=== PATIENT | female | born 1930 | race African-American/Black ===

== ENCOUNTER 2019-05-02 10:34 | Emergency (ER) | payer OTHER ==
[~2019-05-02] VITALS: Ht 154.9 cm; Wt 74.4 kg
[~2019-05-02 10:34] MED LIST: ACETAMINOPHEN325 M1 PO; ADULT LOW DOSE81 MG PO; AMARYL1 MG PO; AMARYL4 MG PO; ASPIRIN81 M2 PO; AZITHROMYCIN 2250 MG PO; CARVEDILOL6.25 MG PO; COZAAR 50 MG TA50 M1 PO; DIPHENHYDRAMINE25 M3 PO; EYE DROPS15 M1; GLUCOPHAGE1000 MG PO; GLUCOPHAGE500 MG PO; JANUVIA50 MG PO; LANTUS SUBQ; LEVAQUIN 500 M500 M2 PO; LOSARTAN POTASS50 MG PO; MEDROLDOSEPACK; MOBIC7.5 MG PO; NIACIN500 MG PO; NORCO 5-325 TA1 EACH PO; NOVOLOG100 UNIT/1 SQ; OMEPRAZOLE 20 M20 MG PO; PREDNISONE 5 MG5 M1 PO; SIMVASTATIN20 MG PO; TRAMADOL 50 MG50 MG PO; ULTRACET TABLE1 EACH PO; ZOCOR 20 MG TAB20 M1 PO; ZOFRAN ODT4 MG PO
[2019-05-02] MEDS ORDERED: TOUJEO SOL300 UNIT/1 SUBQ (10:54)
[2019-05-02] MEDS ORDERED: LATANOPROST 0.7.5 ML OP (11:01)
[2019-05-02] MEDS ORDERED: NORCO 5-325 TA1 EAC1 PO (12:11)
[2019-05-02 12:17] VITALS: BP 142/75
== END 2019-05-02 12:15 | disposition home or self-care (01) ==
LOC: ER 10:34
DX: M11.20 Other chondrocalcinosis, unspecified site (principal); M79.632 Pain in left forearm; M79.642 Pain in left hand; M79.89 Other specified soft tissue disorders; I10 Essential (primary) hypertension; E11.9 Type 2 diabetes mellitus without complications; Z90.710 Acquired absence of both cervix and uterus; Z91.81 History of falling; Z88.0 Allergy status to penicillin; Z88.1 Allergy status to other antibiotic agents; Z88.2 Allergy status to sulfonamides; Z88.6 Allergy status to analgesic agent; Z88.8 Allergy status to other drugs, medicaments and biological substances; W01.0XXA Fall on same level from slipping, tripping and stumbling without subsequent striking against object, initial encounter; Y93.89 Activity, other specified; Y92.89 Other specified places as the place of occurrence of the external cause; Y99.8 Other external cause status